=== PATIENT | male | born 1940 | race Caucasian/White ===

== ENCOUNTER 2020-11-09 12:36 | Emergency (ER) | payer MEDICARE, OTHER ==
[~2020-11-09] VITALS: Ht 180.3 cm; Wt 88.0 kg
[2020-11-09 13:14] LABS: BASOPHILS % (AUTO) 1 % (0-1); EOSINOPHILS % (AUTO) 3 % (1-7); LYMPHOCYTES % (AUTO) 23 % (22-44); MEAN CORPUSCULAR HEMOGLOBIN 30.7 pg (27.5-34.5); MEAN CORPUSCULAR HGB CONC 34.3 g/dL (33.2-36.2); MONOCYTES % (AUTO) 8 % (2-9); NEUTROPHILS % (AUTO) 65 % (42-75); PLATELET COUNT 178 x10^3/uL (130-400); RED BLOOD COUNT 4.98 x10^6/uL (4.38-5.82); RED CELL DISTRIBUTION WIDTH 13.3 % (9.4-14.8)
[2020-11-09 13:24] LABS: CHLORIDE 108 mmol/L (98-107)
[2020-11-09 13:31] LABS: ALANINE AMINOTRANSFERASE 24 U/L (12-78); ALBUMIN 3.6 g/dL (3.4-5.0); ALKALINE PHOSPHATASE 103 U/L (45-117); ANION GAP 9 mmol/L (5-15); BILIRUBIN,TOTAL 0.9 mg/dL (0.2-1.0); CALCIUM 8.6 mg/dL (8.5-10.1); CREATININE 0.98 mg/dL (0.7-1.3); TOTAL PROTEIN 7.3 g/dL (6.4-8.2)
[2020-11-09 13:48] LABS: MICROSCOPIC NOT IND
--- NOTE | 2020-11-09 15:54 | NUR ---
twister in: Pt ambulatory to room from lobby at this time.
--- NOTE | 2020-11-09 16:27 | NUR ---
PROVIDER EVALUATING PT
--- NOTE | 2020-11-09 16:35 | NUR ---
PT C/O A PROBLEM WITH COLON STARTED ABOUT 3 WEEKS AGO PAIN IN THE ABD AND PAIN TO PALPATION. ABOUT A WEEK AGO WASN'T HAVING DAILY BOWEL MOVEMENT, PT TOOK MORE FIBER AND BOWEL MOVEMENT WERE VERY MINIMAL.
--- NOTE | 2020-11-09 17:20 | NUR ---
PT GOT UP TO GOT TO THE RESTROOM TO URINATE AND STATES HAD A SMALL BOWEL MOVEMENT.
--- NOTE | 2020-11-09 18:15 | NUR ---
PT GIVEN ENEMA ONLY TOLERATED ABOUT 350ML, PT LYING IN LEFT LATERAL UNTIL FEELS NEED TO GO.
--- NOTE | 2020-11-09 18:26 | NUR ---
PT ON COMMODE AFTER FEELING NEED TO HAVE A BOWEL MOVEMENT.
--- NOTE | 2020-11-09 18:44 | NUR ---
PT TOLERATED ENEMA AND HAD A LARGE BOWEL MOVEMENT IN COMODE.
--- NOTE | 2020-11-09 18:44 | NUR ---
PROVIDER NOTIFIED ABOUT RESULTS OF POSITIVE REULTS WITH ENEMA, PROVIDER INTO TALK TO PT FOR DISCHARGE AND PLAN OF CARE.
[2020-11-09 18:46] VITALS: BP 155/80
--- NOTE | 2020-11-09 19:00 | NUR ---
Patient/Caregiver given discharge instructions and they have confirmed that they understand the instructions. Patient ambulatory with steady gait.
== END 2020-11-09 19:02 | disposition home or self-care (01) ==
LOC: ED 16:53
DX: K59.00 Constipation, unspecified (principal); R10.30 Lower abdominal pain, unspecified
CPT/HCPCS: 36415; 74022; 80053; 81003; 83690; 85025; 99284